=== PATIENT | female | born 1965 | race Caucasian/White ===

== ENCOUNTER 2017-05-14 05:29 | Outpatient (CLI) | payer OTHER | END 2017-05-14 05:30 | disposition home or self-care (01) | LOC: RT 05:29 | PROVIDERS: ATTEND Nurse Practitioner Family | DX: R00.0 Tachycardia, unspecified (principal) | CPT/HCPCS: 93005 ==

== ENCOUNTER 2017-09-13 18:11 | Outpatient (CLI) | payer SELFPAY | END 2017-09-13 18:12 | disposition home or self-care (01) | LOC: LAB 18:11 | DX: Z53.9 Procedure and treatment not carried out, unspecified reason (principal) ==

== ENCOUNTER 2017-12-17 10:13 | Emergency (ER) | payer OTHER ==
[2017-12-17 10:50] LABS: BASOPHILS # (AUTO) 0.1 10^3/uL (0.0-0.1); BASOPHILS % (AUTO) 0.5 %; EOSINOPHILS # (AUTO) 0.2 10^3/uL (0.0-0.7); EOSINOPHILS % (AUTO) 1.5 %; HGB - HEMOGLOBIN 14.1 g/dL (12.0-16.0); LYMPHOCYTES # (AUTO) 2.3 10^3/uL (1.5-3.5); LYMPHOCYTES % (AUTO) 21.1 %; MEAN CORPUSCULAR HEMOGLOBIN 27.1 pg (27.0-31.0); MEAN CORPUSCULAR HGB CONC 32.8 g/dL (32.0-36.0); MEAN CORPUSCULAR VOLUME 82.7 fL (81.0-99.0); MEAN PLATELET VOLUME 7.9 fL (7.9-10.8); MONOCYTES % (AUTO) 8.9 %; NEUTROPHILS # (AUTO) 7.6 10^3/uL (1.5-6.6); PLT - PLATELET COUNT 298 10^3/uL (130-450); RED BLOOD COUNT 5.18 10^6/uL (4.20-5.40); RED CELL DISTRIBUTION WIDTH 14.6 % (12.0-15.0); WHITE BLOOD COUNT 11.1 x10^3/uL (4.8-10.8)
[2017-12-17 11:04] LABS: ALBUMIN 3.8 g/dL (3.2-5.5); ALBUMIN/GLOBULIN RATIO 1.1 (1.0-2.2); BILIRUBIN,TOTAL 0.7 mg/dL (0.2-1.0); CALCIUM 8.8 mg/dL (8.5-10.3); CREATININE 0.7 mg/dL (0.4-1.0); TOTAL PROTEIN 7.3 g/dL (6.7-8.2)
--- NOTE | 2017-12-17 11:45 | XRAY Report ---
Procedure Date: 12/17/2017 Accession Number: [id number] / [id number] Procedure: XR - Chest 2 View X-Ray CPT Code: 52062 FULL RESULT: EXAM: CHEST RADIOGRAPHY EXAM DATE: 12/17/2017 11:15 AM. CLINICAL HISTORY: Palpitations. COMPARISON: 10/17/16. TECHNIQUE: 2 views. FINDINGS: Lungs/Pleura: No focal opacities evident. No pleural effusion. No pneumothorax. Normal volumes. Mediastinum: Heart and mediastinal contours are unremarkable. Other: None. IMPRESSION: Normal 2-view chest radiography. RADIA
[2017-12-17] MEDS ORDERED: ENOXAPARIN 100 MG/ML SYRINGE SUBQ STA (11:53)
--- NOTE | 2017-12-17 11:55 | ED Physician Documentation ---
PD HPI DYSPNEA - Stated complaint Stated Complaint: HEART PALPITATION - Chief complaint Chief Complaint: Cardiac - History obtained from History obtained from: Patient - History of Present Illness Timing - onset: Today Timing - onset during: Light activity Timing - duration: Minutes Timing - details: Abrupt onset, Still present Inciting event(s): Other (recent trip to [facility]) Improved by: Rest, Sitting up Worsened by: Exertion, Laying flat Associated symptoms: Wheezing, Chest pain / discomfort, Palpitations. No: Fever , Cough, Hemoptysis Similar symptoms before: Diagnosis (PE) Recently seen: Not recently seen - Additional information Additional information: 52-year-old female with a prior history of pulmonary embolism and congestive heart failure has had a recent trip to [facility] and she returned in October. She was at work today and she began to feel dyspneic dizzy and had palpitations. She is concerned about the possibility of a recurrent pulmonary embolism. She states that she was well yesterday but did not feel well in the evening. Review of Systems Constitutional: denies: Fever Eyes: denies: Decreased vision Ears: denies: Ear pain Nose: denies: Congestion Throat: denies: Sore throat Cardiac: reports: Chest pain / pressure, Palpitations. denies: Pedal edema, Calf pain Respiratory: reports: Dyspnea. denies: Cough, Wheezing GI: denies: Abdominal Pain, Nausea, Vomiting : denies: Dysuria, Frequency Skin: denies: Rash Musculoskeletal: denies: Neck pain, Back pain Neurologic: denies: Generalized weakness, Focal weakness, Numbness PD PAST MEDICAL HISTORY - Past Medical History Past Medical History: Yes Cardiovascular: Congestive heart failure, Pulmonary embolism Respiratory: Shortness of breath GI: GERD, GI bleed HEALTH/SAFETY JOB TITLES: None : None Psych: None Musculoskeletal: None - Past Surgical History Past Surgical History: Yes General: Cholecystectomy, Gastric surgery /HEALTH/SAFETY JOB TITLES: section, Tubal ligation, Hysterectomy - Present Medications Home Medications: Ambulatory Orders Medication Instructions Recorded Confirmed Aspirin 325 mg PO DAILY 02/13/13 02/26/14 Levothyroxine [Synthroid] 300 mcg PO QDAC 02/13/13 02/26/14 Cyclobenzaprine [Flexeril] 10 mg PO BID 02/26/14 02/26/14 Ibuprofen 800 mg PO DAILY 02/26/14 02/26/14 Metoprolol Tartrate 25 mg PO BID 02/26/14 02/26/14 Rivaroxaban [Xarelto] 15 mg PO BID #40 tablet 12/17/17 - Allergies Allergies/Adverse Reactions: Allergies Allergy/AdvReac Type Severity Reaction Status Date / Time No Known Drug Allergies Allergy Verified 02/13/13 00:22 - Social History Does the pt smoke?: No Smoking Status: Never smoker Does the pt drink ETOH?: No Does the pt have substance abuse?: No - Immunizations Immunizations are current?: Yes - POLST Patient has POLST: No PD ED PE NORMAL - Vitals Vital signs reviewed: Yes (hypertensive ) - General General: Alert and oriented X 3, Well developed/nourished, Other (mild tachypnea at rest) - HEENT HEENT: Atraumatic, PERRL, EOMI - Neck Neck: Supple, no meningeal sign, No bony TTP - Cardiac Cardiac: No murmur, Other (tachy to 100) - Respiratory Respiratory: Other (tachypneic with adequate air movment and no wheezes. 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, No motor deficit, No sensory deficit, Normal speech Eye Opening: Spontaneous Motor: Obeys Commands Verbal: Oriented GCS Score: 15 - Psych Psych: Normal mood, Normal affect Results - Vitals Vitals: Vital Signs - 24 hr 12/17/17 12/17/17 12/17/17 10:22 12:33 13:14 Temperature 36.2 C L 36.7 C Heart Rate 97 87 94 Respiratory 18 18 16 Rate Blood Pressure 135/85 H 111/81 H 104/75 O2 Saturation 100 100 100 Oxygen O2 Source Room air - EKG (time done) 1021 Rate: Rate (enter#) (93) Rhythm: NSR, LAE Computer interpretation: Agree with computer - Labs Labs: Laboratory Tests 12/17/17 12/17/17 12/17/17 10:48 10:48 10:48 WBC 11.1 H RBC 5.18 Hgb 14.1 Hct 42.9 MCV 82.7 MCH 27.1 MCHC 32.8 RDW 14.6 Plt Count 298 MPV 7.9 Neut # (Auto) 7.6 H Lymph # (Auto) 2.3 Daggett # (Auto) 1.0 Eos # (Auto) 0.2 Baso # (Auto) 0.1 Absolute Nucleated RBC 0.00 Nucleated RBC % 0.0 Sodium 135 Potassium 3.8 Chloride 104 Carbon Dioxide 22 Anion Gap 9.0 BUN 15 Creatinine 0.7 Estimated GFR (MDRD) 89 Glucose 104 H Calcium 8.8 Total Bilirubin 0.7 AST 22 ALT 22 Alkaline Phosphatase 53 Troponin I < 0.04 Total Protein 7.3 Albumin 3.8 Globulin 3.5 Albumin/Globulin Ratio 1.1 Lipase 31 Procedures - IVC sono (time) 1150 Bedside IVC sono: IVC measures (cm) (1.84), Euvolemia PD MEDICAL DECISION MAKING - ED course Complexity details: reviewed old records, reviewed results, re-evaluated patient , considered differential, d/w patient ED course: 52-year-old female with a history of pulmonary embolism and congestive heart failure has acute dyspnea and clear lungs on exam a pulmonary angiogram is ordered. She is administered Lovenox 100 mg. The angio gram shows PE in the left lung and she is prescribed xarolto and we get a phone call from the pharmacist that this is not a covered medication and she is switched to Eliquis. - Sepsis Event Vital Signs: Vital Signs - 24 hr 12/17/17 12/17/17 12/17/17 10:22 12:33 13:14 Temperature 36.2 C L 36.7 C Heart Rate 97 87 94 Respiratory 18 18 16 Rate Blood Pressure 135/85 H 111/81 H 104/75 O2 Saturation 100 100 100 Oxygen O2 Source Room air Departure - Departure Disposition: 01 Home, Self Care Clinical Impression: Pulmonary embolism Qualifiers: Pulmonary embolism type: other Chronicity: acute Acute cor pulmonale presence: without acute cor pulmonale Qualified Code(s): I26.99 - Other pulmonary embolism without acute cor pulmonale Condition: Stable Instructions: Embolism Pulmonary Follow-Up: Cresencio Kessler ARNP [Primary Care Provider] - Prescriptions: Rivaroxaban [Xarelto] 15 mg PO BID #40 tablet Comments: Today looks like there is a pulmonary embolism in the left lung. Take your medication twice per day for the next 3 weeks and following that you will need to switch the medication to a higher dose and take it once per day. You will need to follow-up with your primary care doctor and should not miss doses of this medicine. Forms: Activity restrictions Discharge Date/Time: 12/17/17 13:35
[2017-12-17] MEDS ORDERED: IOPAMIDOL-300 100 ML VIAL ONE (12:18)
[2017-12-17] MEDS ORDERED: IOPAMIDOL-300 100 ML VIAL IVP ONE (12:38)
--- NOTE | 2017-12-17 12:57 | CT Report ---
Procedure Date: 12/17/2017 Accession Number: [id number] / [id number] Procedure: CT - Chest Angio (PE) CPT Code: FULL RESULT: EXAM: CT ANGIOGRAM CHEST EXAM DATE: 12/17/2017 12:36 PM. CLINICAL HISTORY: Dyspnea, chest pain palpitations. COMPARISON: 12/17/2017, 02/13/2013. TECHNIQUE: Routine helical imaging was performed through the chest in the pulmonary arterial phase. IV Contrast: ISOVUE 300 80mL. Reconstructions: Coronal 3-D MIP reconstructions.Sagittal and coronal. In accordance with CT protocol optimization, one or more of the following dose reduction techniques were utilized for this exam: automated exposure control, adjustment of mA and/or KV based on patient size, or use of iterative reconstructive technique. FINDINGS: Pulmonary Arteries: Diagnostic quality: Adequate through the segmental arteries. There are small filling defects in a left lower lobe basilar segmental artery (image 67 through 70 series 4). No additional emboli identified. RV/LV is within normal limits. There is no interventricular septal bowing. There is no reflux of contrast material in the IVC. Lungs/Pleura: No consolidation, nodules, or edema. No or pleural effusion or pneumothorax. Mediastinum: Normal heart size. No significant pericardial effusion. Increased right hilar soft tissue is unchanged since 2012. Mild narrowing of right lower lobe basilar segmental arteries is unchanged. No new lymphadenopathy. Moderate hiatal hernia. Patulous gas-filled distal esophagus. Thoracic Aorta: Unremarkable. Upper Abdomen: Surgical changes of the gastroesophageal junction. Other: None. IMPRESSION: 1. Small left lower lobe segmental pulmonary embolus. No evidence of right heart strain. 2. Surgical changes at the gastroesophageal junction. Moderate hiatal hernia. RADIA The above findings were discussed with Saul Marie by Dr. Nic Rosado at 12:56 hrs on 12/17/17.
[2017-12-17 13:15] VITALS: BP 104/75
== END 2017-12-17 13:35 | disposition home or self-care (01) ==
LOC: ED 10:13
DX: I26.99 Other pulmonary embolism without acute cor pulmonale (principal); I50.9 Heart failure, unspecified; Z79.01 Long term (current) use of anticoagulants
CPT/HCPCS: 36415; 71046; 71275; 80053; 83690; 84484; 85025; 93005; 96372; 99283; 99284; J1650; Q9967

== ENCOUNTER 2018-03-07 16:15 | Emergency (ER) | payer OTHER ==
--- NOTE | 2018-03-07 18:03 | ED Physician Documentation ---
PD HPI LOWER EXT INJURY - Stated complaint Stated Complaint: LF FOOT INJ - Chief complaint Chief Complaint: Ext Problem - History obtained from History obtained from: Patient, Family - History of Present Illness PD HPI LOW EXT INJURY LOCATION: Left, Toe (great) Type of injury: Blunt / blow Where injury occurred: Home Timing - onset: Today Timing - duration: Hours Timing - details: Abrupt onset, Still present Improved by: Rest, Immobilization Worsened by: Moving, Palpating Associated symptoms: Swelling. No: Weakness Contributing factors: Anticoagulated Similar symptoms before: Has not had sx before Recently seen: Not recently seen - Additional information Additional information: 52-year-old female kicked her 500 pound male pig when he was trying to get into the pig pen to get after the Sow and her piglets. She sustained an injury to the left great toe and it hurts especially over the distal 1st metatarsal. Review of Systems Constitutional: denies: Fever Respiratory: denies: Cough GI: denies: Vomiting : denies: Dysuria Skin: denies: Rash Musculoskeletal: reports: Extremity pain, Pain with weight bearing. 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 : None Psych: None Musculoskeletal: None - Past Surgical History Past Surgical History: Yes General: Cholecystectomy, Gastric surgery /BOAT JOINER HELPER: section, Tubal ligation, Hysterectomy - Present Medications Home Medications: Ambulatory Orders Medication Instructions Recorded Confirmed Levothyroxine [Synthroid] 275 mcg PO QDAC 02/13/13 03/07/18 Cyclobenzaprine [Flexeril] 10 mg PO BID 02/26/14 03/07/18 Ibuprofen 800 mg PO DAILY 02/26/14 03/07/18 Metoprolol Tartrate 25 mg PO BID 02/26/14 03/07/18 Apixaban [Eliquis] 5 mg BID 03/07/18 03/07/18 - Allergies Allergies/Adverse Reactions: Allergies Allergy/AdvReac Type Severity Reaction Status Date / Time No Known Drug Allergies Allergy Verified 03/07/18 17:17 - Living Situation Living Arrangement: reports: At home - Social History Does the pt smoke?: No Smoking Status: Never smoker Does the pt drink ETOH?: No Does the pt have substance abuse?: No - Immunizations Immunizations are current?: Yes - POLST Patient has POLST: No PD ED PE NORMAL - Vitals Vital signs reviewed: Yes (tachy and hypertensive ) - General General: Alert and oriented X 3, No acute distress, Well developed/nourished - HEENT HEENT: Atraumatic, PERRL, EOMI - Respiratory Respiratory: No respiratory distress - Derm Derm: Normal color, Warm and dry, No rash - Extremities Extremities: Other (There is a bunion deformity on the left foot. There is tenderness over this area over the distal left 1st metatarsal. 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 No fracture identified. 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 She does not have evidence of a fracture on her x-ray and she is placed onto crutches and given a note for work for 3 days. - Sepsis Event Vital Signs: Vital Signs - 24 hr 03/07/18 03/07/18 16:35 18:17 Temperature 36.9 C 37.3 C Heart Rate 111 H 102 H Respiratory 18 18 Rate Blood Pressure 118/101 H 124/81 H O2 Saturation 98 100 Oxygen O2 Source Room air Departure - Departure Disposition: 01 Home, Self Care Clinical Impression: Contusion of left foot including toes Qualifiers: Encounter type: initial encounter Qualified Code(s): S90.32XA - Contusion of left foot, initial encounter Condition: Stable Instructions: ED Contusion Foot Follow-Up: Cresencio Kessler ARNP [Primary Care Provider] - Forms: Activity restrictions
[2018-03-07 18:17] VITALS: BP 124/81
--- NOTE | 2018-03-07 18:24 | XRAY Report ---
Reason: big toe contusion Procedure Date: 03/07/2018 Accession Number: [id number] / [id number] Procedure: XR - Foot 3 View LT CPT Code: FULL RESULT: EXAM: LEFT FOOT RADIOGRAPHY EXAM DATE: 03/07/2018 05:53 PM. CLINICAL HISTORY: Big toe contusion. Kicking injury. COMPARISON: None. TECHNIQUE: 3 views. FINDINGS: Bones: No traumatic or destructive bone abnormalities. Calcaneal enthesophyte noted. Joints: Degenerative spurring at the first MTP joint. No subluxations. Soft Tissues: Unremarkable. IMPRESSION: 1. No fracture identified. 2. 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 RADIA
== END 2018-03-07 18:33 | disposition home or self-care (01) ==
LOC: ED 16:15
DX: S90.112A Contusion of left great toe without damage to nail, initial encounter (principal); W22.8XXA Striking against or struck by other objects, initial encounter; Y92.009 Unspecified place in unspecified non-institutional (private) residence as the place of occurrence of the external cause; I26.99 Other pulmonary embolism without acute cor pulmonale; Z79.01 Long term (current) use of anticoagulants
CPT/HCPCS: 99282; 99283

== ENCOUNTER 2018-04-23 10:57 | Outpatient (CLI) | payer OTHER ==
[2018-04-23] MEDS ORDERED: IOPAMIDOL-300 100 ML VIAL ONE (11:07)
[2018-04-23] MEDS ORDERED: IOPAMIDOL-300 50 ML VIAL ONE (11:07)
[2018-04-23 11:20] LABS: BASOPHILS % (AUTO) 0.5 %; EOSINOPHILS # (AUTO) 0.1 10^3/uL (0.0-0.7); EOSINOPHILS % (AUTO) 1.7 %; HGB - HEMOGLOBIN 13.9 g/dL (12.0-16.0); LYMPHOCYTES # (AUTO) 2.3 10^3/uL (1.5-3.5); LYMPHOCYTES % (AUTO) 26.3 %; MEAN CORPUSCULAR HEMOGLOBIN 27.7 pg (27.0-31.0); MEAN CORPUSCULAR HGB CONC 34.1 g/dL (32.0-36.0); MEAN CORPUSCULAR VOLUME 81.3 fL (81.0-99.0); MEAN PLATELET VOLUME 7.7 fL (7.9-10.8); MONOCYTES # (AUTO) 0.9 10^3/uL (0.0-1.0); MONOCYTES % (AUTO) 10.4 %; NEUTROPHILS # (AUTO) 5.2 10^3/uL (1.5-6.6); NEUTROPHILS % (AUTO) 61.1 %; PLT - PLATELET COUNT 273 10^3/uL (130-450); RED BLOOD COUNT 5.02 10^6/uL (4.20-5.40); RED CELL DISTRIBUTION WIDTH 14.4 % (12.0-15.0); WHITE BLOOD COUNT 8.6 x10^3/uL (4.8-10.8)
[2018-04-23 11:34] LABS: CALCIUM 9.4 mg/dL (8.5-10.3); CREATININE 0.7 mg/dL (0.4-1.0)
[2018-04-23] MEDS ORDERED: IOPAMIDOL-300 50 ML VIAL PO ONE (12:25)
[2018-04-23] MEDS ORDERED: IOPAMIDOL-300 100 ML VIAL IVP ONE (12:25)
--- NOTE | 2018-04-23 13:38 | CT Report ---
Reason: DIARRHEA,ABDOMINAL PAIN UNSPECIFIED Procedure Date: 04/23/2018 Accession Number: [id number] / [id number] Procedure: CT - Abdomen/Pelvis W/ CPT Code: FULL RESULT: EXAM: CT ABDOMEN AND PELVIS EXAM DATE: 04/23/2018 12:23 PM. CLINICAL HISTORY: Diarrhea, abdominal PAIN UNSPECIFIED. COMPARISONS: None. TECHNIQUE: Routine helical CT imaging was performed through the abdomen and pelvis. IV contrast: ISOVUE 300 100mL. Enteric contrast: Yes. Reconstructions: Coronal and sagittal. In accordance with CT protocol optimization, one or more of the following dose reduction techniques were utilized for this exam: automated exposure control, adjustment of mA and/or KV based on patient size, or use of iterative reconstructive technique. FINDINGS: Lung Bases: Unremarkable. Hiatal hernia Liver: Normal. No masses. Gallbladder/Bile Ducts: Status post cholecystectomy Spleen: Normal. Pancreas: Normal. Adrenal Glands: Normal. Kidneys: Normal. No masses or hydronephrosis. Peritoneal Cavity/Bowel: Prior gastric surgery.. No free fluid, free air or pathologic adenopathy. Scattered normal size lymph nodes are present. No masses or acute inflammatory process. The appendix is not seen. Pelvic Organs: The bladder is within normal limits. The uterus is not seen. What is believed to be a residual left ovary with a small cyst is present series 3 image 64. Vasculature: No aneurysms or other significant abnormality. Bones: Thoracolumbar junction dextroscoliosis. Grade 1 anterior listhesis L4 on L5. Other: None. IMPRESSION: 1. Prior gastric surgery with hiatal hernia. 2. Status post cholecystectomy and hysterectomy. 3. Degenerative changes in the spine. 4. No acute findings in the abdomen or pelvis. RAD[facility] The call report notification system was initiated by Dr. Darlin Clark at 13:28 hrs on 04/23/18. The above findings were discussed with Dr. Mathis by Dr. Darlin Clark at 13:35 hrs on 04/23/18.
== END 2018-04-23 10:58 | disposition home or self-care (01) ==
LOC: DI 10:57
PROVIDERS: ATTEND Family Medicine
DX: K44.9 Diaphragmatic hernia without obstruction or gangrene (principal); R10.9 Unspecified abdominal pain; R19.7 Diarrhea, unspecified; Z90.49 Acquired absence of other specified parts of digestive tract; Z90.710 Acquired absence of both cervix and uterus
CPT/HCPCS: 36415; 74177; 80048; 85025; Q9967

== ENCOUNTER 2019-02-11 12:09 | Emergency (ER) | payer BC ==
--- NOTE | 2019-02-11 12:51 | ED Physician Documentation ---
History of Present Illness - Stated complaint Stated Complaint: CHEST PX - Chief complaint Chief Complaint: Cardiac - History obtained from History obtained from: Patient - History of Present Illness Timing: Today Pain level max: 4 Pain level now: 1 - Additonal information Additional information: 53-year-old female presents the emergency department stating that she had chest pain today, started at approximately 1145. Lasted until approximately 1210. Center of the chest, sharp. She has had 3 pulmonary emboli in the past. The first 2 were attributed to oral contraceptive pills. She has been on Eliquis for the last year for the most recent pulmonary emboli. She states that she has been on a tapering dose of this and is currently on 2-1/2 mg of Eliquis daily. No history of acute coronary syndrome. Nothing made the pain better. Nothing made it worse. No difficulty breathing. No nausea or vomiting. Review of Systems Ten Systems: 10 systems reviewed and negative Constitutional: denies: Fever, Chills Throat: denies: Sore throat Respiratory: denies: Cough GI: denies: Vomiting, Diarrhea Skin: denies: Rash Musculoskeletal: denies: Neck pain, Back pain Neurologic: denies: Focal weakness, Numbness, Headache PD PAST MEDICAL HISTORY - Past Medical History Cardiovascular: Congestive heart failure, Pulmonary embolism Respiratory: Shortness of breath GI: GERD, GI bleed TABBER: None : None Psych: None Musculoskeletal: None - Past Surgical History Past Surgical History: Yes General: Cholecystectomy, Gastric surgery /TABBER: section, Tubal ligation, Hysterectomy - Present Medications Home Medications: Ambulatory Orders Medication Instructions Recorded Confirmed Levothyroxine [Synthroid] 275 mcg PO QDAC 02/13/13 03/07/18 Cyclobenzaprine [Flexeril] 10 mg PO BID 02/26/14 03/07/18 Ibuprofen 800 mg PO DAILY 02/26/14 03/07/18 Metoprolol Tartrate 25 mg PO BID 02/26/14 03/07/18 Apixaban [Eliquis] 5 mg BID 03/07/18 03/07/18 - Allergies Allergies/Adverse Reactions: Allergies Allergy/AdvReac Type Severity Reaction Status Date / Time No Known Drug Allergies Allergy Verified 02/11/19 12:14 - Social History Does the pt smoke?: No Smoking Status: Never smoker Does the pt drink ETOH?: No Does the pt have substance abuse?: No - Immunizations Immunizations are current?: Yes - POLST Patient has POLST: No PD ED PE NORMAL - Vitals Vital signs reviewed: Yes - General General: Alert and oriented X 3, No acute distress, Well developed/nourished - HEENT HEENT: PERRL, Moist mucous membranes - Neck Neck: Supple, no meningeal sign - Cardiac Cardiac: RRR, Strong equal pulses - Respiratory Respiratory: No respiratory distress, Clear bilaterally - Abdomen Abdomen: Soft, Non tender, Non distended - Derm Derm: Warm and dry - Extremities Extremities: No edema, No calf tenderness / cord - Neuro Neuro: Alert and oriented X 3 - Psych Psych: Normal mood, Normal affect Results - Vitals Vitals: Vital Signs - 24 hr 02/11/19 02/11/19 02/11/19 12:14 12:47 14:36 Temperature 37.1 C Heart Rate 76 64 67 Respiratory 18 22 13 Rate Blood Pressure 119/75 107/61 O2 Saturation 100 97 97 Oxygen O2 Source Room air - EKG (time done) 1223 Rate: Rate (enter#) (66) Rhythm: NSR Gilbert: Normal Intervals: Normal GA QRS: Normal Ischemia: Normal ST segments - Labs Labs: Laboratory Tests 02/11/19 02/11/19 02/11/19 12:40 12:40 12:40 WBC 8.2 RBC 5.15 Hgb 14.2 Hct 43.4 MCV 84.3 MCH 27.6 MCHC 32.7 RDW 13.3 Plt Count 269 MPV 10.3 Neut # (Auto) 4.8 Lymph # (Auto) 2.4 Briscoe # (Auto) 0.8 Eos # (Auto) 0.2 Baso # (Auto) 0.1 Absolute Nucleated RBC 0.00 Nucleated RBC % 0.0 Sodium 139 Potassium 3.9 Chloride 105 Carbon Dioxide 23 Anion Gap 11.0 BUN 18 Creatinine 0.8 Estimated GFR (MDRD) 76 L Glucose 102 H Calcium 9.1 Total Bilirubin 0.6 AST 20 ALT 24 Alkaline Phosphatase 48 Troponin I High Sens < 2.3 L Total Protein 7.0 Albumin 4.1 Globulin 2.9 Albumin/Globulin Ratio 1.4 Lipase 38 02/11/19 14:25 WBC RBC Hgb Hct MCV MCH MCHC RDW Plt Count MPV Neut # (Auto) Lymph # (Auto) Briscoe # (Auto) Eos # (Auto) Baso # (Auto) Absolute Nucleated RBC Nucleated RBC % Sodium Potassium Chloride Carbon Dioxide Anion Gap BUN Creatinine Estimated GFR (MDRD) Glucose Calcium Total Bilirubin AST ALT Alkaline Phosphatase Troponin I High Sens < 2.3 L Total Protein Albumin Globulin Albumin/Globulin Ratio Lipase - Rads (name of study) Chest x-ray Radiology: Prelim report reviewed, EMP read contemporaneously, See rad report (No acute intrathoracic plain film abnormality. ) CT pulmonary angiogram Radiology: Prelim report reviewed, EMP read contemporaneously, See rad report (Negative for acute pulmonary embolism. 2. Findings of old, chronic pulmonary embolism in the right lower lobe segmental arteries. 3. Small hiatal hernia unchanged. 4. No acute pulmonary disease. ) PD MEDICAL DECISION MAKING - ED course Complexity details: reviewed results, re-evaluated patient, considered differential (No ST elevation CT, no aortic dissection, no PE, no tension pneumothorax, no aortic aneurysm), d/w patient ED course: 53-year-old female with atypical chest pain. She is concerned about another pulmonary embolism. CT scan is negative. EKG does not show any acute abnormalities. Negative high-sensitivity troponin x2. We will follow-up with her doctor for further care and cardiac stress test. Patient counseled regarding signs and symptoms for which I believe and urgent re-evaluation would be necessary. Patient with good understanding of and agreement to plan and is comfortable going home at this time This document was made in part using voice recognition software. While efforts are made to proofread this document, sound alike and grammatical errors may occur. Asymptomatic in the emergency department Departure - Departure Disposition: 01 Home, Self Care Clinical Impression: Chest pain Qualifiers: Chest pain type: unspecified Qualified Code(s): R07.9 - Chest pain, unspecified Condition: Good Instructions: ED Chest Pain Atypical Unkn Cause Follow-Up: Cresencio Kessler ARNP [Primary Care Provider] - Within 1 week Comments: The cause of your symptoms is unclear. Return if you worsen. Follow-up with your doctor for further care. Continue your current medications. Discharge Date/Time: 02/11/19 15:47
[2019-02-11 12:56] LABS: BASOPHILS # (AUTO) 0.1 10^3/uL (0.0-0.1); BASOPHILS % (AUTO) 0.7 %; EOSINOPHILS # (AUTO) 0.2 10^3/uL (0.0-0.7); EOSINOPHILS % (AUTO) 1.8 %; HGB - HEMOGLOBIN 14.2 g/dL (12.0-16.0); LYMPHOCYTES # (AUTO) 2.4 10^3/uL (1.5-3.5); LYMPHOCYTES % (AUTO) 28.6 %; MEAN CORPUSCULAR HEMOGLOBIN 27.6 pg (27.0-31.0); MEAN CORPUSCULAR HGB CONC 32.7 g/dL (32.0-36.0); MEAN CORPUSCULAR VOLUME 84.3 fL (81.0-99.0); MEAN PLATELET VOLUME 10.3 fL (7.9-10.8); MONOCYTES # (AUTO) 0.8 10^3/uL (0.0-1.0); MONOCYTES % (AUTO) 10.2 %; NEUTROPHILS # (AUTO) 4.8 10^3/uL (1.5-6.6); NEUTROPHILS % (AUTO) 58.1 %; PLT - PLATELET COUNT 269 10^3/uL (130-450); RED BLOOD COUNT 5.15 10^6/uL (4.20-5.40); RED CELL DISTRIBUTION WIDTH 13.3 % (12.0-15.0); WHITE BLOOD COUNT 8.2 x10^3/uL (4.8-10.8)
[2019-02-11] MEDS ORDERED: IOVERSOL 320 100 ML VIAL IVP ONE ×2 (13:02→13:56)
--- NOTE | 2019-02-11 13:03 | XRAY Report ---
Reason: Chest Pain Procedure Date: 02/11/2019 Accession Number: [id number] / [id number] Procedure: XR - Chest 1 View X-Ray CPT Code: 40652 FULL RESULT: EXAM: CHEST RADIOGRAPHY EXAM DATE: 02/11/2019 12:36 PM. CLINICAL HISTORY: Chest Pain. COMPARISON: CHEST 2 VIEW 12/17/2017 11:08 AM. TECHNIQUE: 1 view. FINDINGS: Lungs/Pleura: No focal opacities evident. No pleural effusion. No pneumothorax. Mediastinum: Within exam limitations, the cardiomediastinal contour is normal. Other: There is a small hiatal hernia. IMPRESSION: No acute intrathoracic plain film abnormality. RADIA
[2019-02-11 13:08] LABS: ALBUMIN 4.1 g/dL (3.2-5.5); ALBUMIN/GLOBULIN RATIO 1.4 (1.0-2.2); BILIRUBIN,TOTAL 0.6 mg/dL (0.2-1.0); CALCIUM 9.1 mg/dL (8.5-10.3); CREATININE 0.8 mg/dL (0.4-1.0)
--- NOTE | 2019-02-11 13:58 | CT Report ---
Reason: chest pain, h/o PE x 3 in the past. Procedure Date: 02/11/2019 Accession Number: [id number] / [id number] Procedure: CT - ANGIO CHEST W/WO CPT Code: FULL RESULT: EXAM: CT ANGIOGRAM CHEST EXAM DATE: 02/11/2019 01:32 PM. CLINICAL HISTORY: Chest pain, h/o PE x 3 in the past. COMPARISON: CHEST ANGIO 12/17/2017 12:27 PM. TECHNIQUE: Routine helical imaging was performed through the chest in the pulmonary arterial phase. IV Contrast: OPTI 320 80ML. Reconstructions: Coronal 3-D MIP reconstructions.Sagittal and coronal. In accordance with CT protocol optimization, one or more of the following dose reduction techniques were utilized for this exam: automated exposure control, adjustment of mA and/or KV based on patient size, or use of iterative reconstructive technique. FINDINGS: Pulmonary Arteries: Diagnostic quality: Adequate through the segmental arteries. The right lower lobe segmental pulmonary arteries are small in size and demonstrate hypoenhancement similar to previous examination. Negative for acute pulmonary embolism. Main pulmonary artery size is normal. Lungs/Pleura: No consolidative process or mass. Lung volumes are normal. Trachea and central airways are normal in caliber. Mediastinum: Heart size is normal. There is no pericardial effusion. No mediastinal or hilar lymphadenopathy. There is a small sliding hiatal hernia. Thoracic Aorta: The aorta is not yet optimally enhanced with contrast. No aortic aneurysm. Upper Abdomen: There are findings of previous gastric surgery. Other: None. IMPRESSION: 1. Negative for acute pulmonary embolism. 2. Findings of old, chronic pulmonary embolism in the right lower lobe segmental arteries. 3. Small hiatal hernia unchanged. 4. No acute pulmonary disease. RADIA
[2019-02-11 14:40] VITALS: BP 107/61
== END 2019-02-11 15:47 | disposition home or self-care (01) ==
LOC: ED 12:09
DX: R07.9 Chest pain, unspecified (principal); Z86.718 Personal history of other venous thrombosis and embolism; Z79.01 Long term (current) use of anticoagulants
CPT/HCPCS: 36415; 71045; 71275; 80053; 83690; 84484; 85025; 99284; Q9967

== ENCOUNTER 2019-06-07 08:18 | Outpatient (CLI) | payer BC ==
[2019-06-07 09:05] LABS: BASOPHILS # (AUTO) 0.1 10^3/uL (0.0-0.1); BASOPHILS % (AUTO) 0.9 %; EOSINOPHILS # (AUTO) 0.1 10^3/uL (0.0-0.7); EOSINOPHILS % (AUTO) 1.7 %; HGB - HEMOGLOBIN 14.1 g/dL (12.0-16.0); LYMPHOCYTES # (AUTO) 2.4 10^3/uL (1.5-3.5); LYMPHOCYTES % (AUTO) 29.1 %; MEAN CORPUSCULAR HEMOGLOBIN 26.7 pg (27.0-31.0); MEAN CORPUSCULAR HGB CONC 31.8 g/dL (32.0-36.0); MEAN CORPUSCULAR VOLUME 83.7 fL (81.0-99.0); MEAN PLATELET VOLUME 10.2 fL (7.9-10.8); MONOCYTES # (AUTO) 0.9 10^3/uL (0.0-1.0); MONOCYTES % (AUTO) 11.4 %; NEUTROPHILS # (AUTO) 4.6 10^3/uL (1.5-6.6); NEUTROPHILS % (AUTO) 56.4 %; PLT - PLATELET COUNT 279 10^3/uL (130-450); RED BLOOD COUNT 5.29 10^6/uL (4.20-5.40); RED CELL DISTRIBUTION WIDTH 14.3 % (12.0-15.0); WHITE BLOOD COUNT 8.1 x10^3/uL (4.8-10.8)
[2019-06-07 09:13] LABS: HB2 TOTAL 14.5 g/dL; HEMOGLOBIN A1C 0.6 g/dL; HEMOGLOBIN A1C % 5.9 % (4.6-6.2)
[2019-06-07 09:15] LABS: ALBUMIN/GLOBULIN RATIO 1.3 (1.0-2.2); ALKALINE PHOSPHATASE 52 IU/L (42-121); ALT ALANINE AMINOTRANSFERASE 21 IU/L (10-60); AST ASPARTATE AMINOTRANSFERASE 19 IU/L (10-42); BILIRUBIN,TOTAL 0.7 mg/dL (0.2-1.0); BUN - BLOOD UREA NITROGEN 14 mg/dL (6-20); CALCIUM 9.4 mg/dL (8.5-10.3); CARBON DIOXIDE - CO2 26 mmol/L (21-32); CHLORIDE 104 mmol/L (101-111); CHOL/HDL RATIO 4.4 (<4.4); CHOLESTEROL 200 mg/dL; CREATININE 0.6 mg/dL (0.4-1.0); GFR - MDRD 105 (>89); GLUCOSE 103 mg/dL (70-100); HDL CHOLESTEROL 45 mg/dL; LDL CHOLESTEROL,CALCULATED 121 mg/dL; LDL/HDL RATIO 2.7 (<4.4); SODIUM 138 mmol/L (135-145); VLDL CHOLESTEROL 34 mg/dL
[2019-06-07 09:23] LABS: T4 (THYROXINE) 8.99 ug/dL (6.09-12.23)
[2019-06-07 09:26] LABS: THYROID STIMULATING HORMONE < 0.08 uIU/mL (0.34-5.60)
[2019-06-07 09:28] LABS: FREE T4 (FREE THYROXINE) 1.24 ng/dL (0.58-1.64)
[2019-06-07 09:32] LABS: FERRITIN 68.6 ng/mL (11.0-306.8)
== END 2019-06-07 08:19 | disposition home or self-care (01) ==
LOC: LAB 08:18
PROVIDERS: ATTEND Nurse Practitioner Family
DX: Z00.00 Encounter for general adult medical examination without abnormal findings (principal); E03.2 Hypothyroidism due to medicaments and other exogenous substances; E55.9 Vitamin D deficiency, unspecified; E78.5 Hyperlipidemia, unspecified
CPT/HCPCS: 36415; 80053; 80061; 81599; 82306; 82728; 83036; 83525; 83721; 84436; 84439; 84443; 84481; 85025; 86304

== ENCOUNTER 2019-09-02 07:37 | Outpatient (CLI) | payer BC ==
--- NOTE | 2019-09-02 08:41 | Mammography Report ---
Reason: ROUTINE MAMMO Procedure Date: 09/02/2019 Accession Number: [id number] / [id number] Procedure: [facility] - Screening Mammo w/Arash CPT Code: Final Report FULL RESULT: EXAM: Screening Mammo w/Arash DATE: 09/02/2019 8:13 AM CLINICAL HISTORY: Screening encounter. TECHNIQUE: (B) - Bilateral CC and MLO views were obtained. COMPARISON: 11/03/2013. PARENCHYMAL PATTERN: (A) - The breast(s) demonstrate(s) scattered fibroglandular densities. FINDINGS: There are no suspicious masses, calcifications, or areas of distortion. IMPRESSION: Negative examination. BI-RADS category 1. RECOMMENDATION: (ANNUAL) - Recommend routine annual screening mammography. BI-RADS CATEGORY: (1) - Negative. STANDARD QUALIFYING STATEMENTS: 1. This examination was not reviewed with the aid of Computer-Aided Detection (CAD). 2. A negative or benign imaging report should not preclude biopsy if clinically suspicious findings are present. 3. Dense breasts may obscure an underlying neoplasm. 4. This examination was reviewed with the aid of 3D breast imaging (tomosynthesis).
== END 2019-09-02 07:38 | disposition home or self-care (01) ==
LOC: DI 07:37
PROVIDERS: ATTEND Nurse Practitioner Family
DX: Z12.31 Encounter for screening mammogram for malignant neoplasm of breast (principal)
CPT/HCPCS: 77063; 77067

== ENCOUNTER 2020-05-21 10:44 | Outpatient (CLI) | payer BC ==
[2020-05-21 11:19] LABS: BASOPHILS # (AUTO) 0.1 10^3/uL (0.0-0.1); BASOPHILS % (AUTO) 0.9 %; EOSINOPHILS # (AUTO) 0.1 10^3/uL (0.0-0.7); EOSINOPHILS % (AUTO) 1.8 %; HGB - HEMOGLOBIN 13.5 g/dL (12.0-16.0); MEAN CORPUSCULAR HEMOGLOBIN 27.3 pg (27.0-31.0); MEAN CORPUSCULAR HGB CONC 32.3 g/dL (32.0-36.0); MEAN CORPUSCULAR VOLUME 84.4 fL (81.0-99.0); MEAN PLATELET VOLUME 9.7 fL (7.9-10.8); MONOCYTES # (AUTO) 0.7 10^3/uL (0.0-1.0); MONOCYTES % (AUTO) 10.7 %; NEUTROPHILS # (AUTO) 3.9 10^3/uL (1.5-6.6); NEUTROPHILS % (AUTO) 57.3 %; PLT - PLATELET COUNT 273 10^3/uL (130-450); RED BLOOD COUNT 4.95 10^6/uL (4.20-5.40); RED CELL DISTRIBUTION WIDTH 14.5 % (12.0-15.0); WHITE BLOOD COUNT 6.8 x10^3/uL (4.8-10.8)
[2020-05-21 11:32] LABS: HEMOGLOBIN A1c% 5.7 % (4.27-6.07)
[2020-05-21 11:40] LABS: ALBUMIN 4.1 g/dL (3.2-5.5); ALBUMIN/GLOBULIN RATIO 1.4 (1.0-2.2); ALKALINE PHOSPHATASE 62 IU/L (42-121); ALT ALANINE AMINOTRANSFERASE 22 IU/L (10-60); AST ASPARTATE AMINOTRANSFERASE 20 IU/L (10-42); BILIRUBIN,TOTAL 0.7 mg/dL (0.2-1.0); BUN - BLOOD UREA NITROGEN 20 mg/dL (6-20); CALCIUM 9.1 mg/dL (8.5-10.3); CARBON DIOXIDE - CO2 25 mmol/L (21-32); CHLORIDE 103 mmol/L (101-111); CHOL/HDL RATIO 4.5 (<4.4); CHOLESTEROL 196 mg/dL; CREATININE 0.6 mg/dL (0.4-1.0); GLUCOSE 104 mg/dL (70-100); HDL CHOLESTEROL 44 mg/dL; LDL CHOLESTEROL,CALCULATED 124 mg/dL; LDL/HDL RATIO 2.8 (<4.4); MAGNESIUM 2.4 mg/dL (1.7-2.8); SODIUM 140 mmol/L (135-145); TOTAL PROTEIN 7.1 g/dL (6.7-8.2); VLDL CHOLESTEROL 28 mg/dL
[2020-05-21 11:44] LABS: CRP - C-REACTIVE PROTEIN < 1.0 mg/dL (0-1.0)
[2020-05-21 11:50] LABS: T4 (THYROXINE) 10.64 ug/dL (6.09-12.23)
[2020-05-21 11:51] LABS: CA 125 12.7 U/mL (0.0-35.0)
[2020-05-21 11:52] LABS: THYROID STIMULATING HORMONE 0.45 uIU/mL (0.34-5.60)
[2020-05-21 11:54] LABS: FREE T3 3.83 pg/mL (2.5-3.9); FREE T4 (FREE THYROXINE) 1.19 ng/dL (0.58-1.64)
[2020-05-21 11:59] LABS: FERRITIN 61.8 ng/mL (11.0-306.8)
== END 2020-05-21 10:45 | disposition home or self-care (01) ==
LOC: LAB 10:44
PROVIDERS: ATTEND Nurse Practitioner Family
DX: Z00.01 Encounter for general adult medical examination with abnormal findings (principal); E03.2 Hypothyroidism due to medicaments and other exogenous substances; E55.9 Vitamin D deficiency, unspecified; E78.5 Hyperlipidemia, unspecified; M79.10 Myalgia, unspecified site; M54.5 Low back pain; K95.09 Other complications of gastric band procedure; R19.7 Diarrhea, unspecified; R11.0 Nausea; R00.0 Tachycardia, unspecified; I26.99 Other pulmonary embolism without acute cor pulmonale; Z86.711 Personal history of pulmonary embolism; E66.9 Obesity, unspecified
CPT/HCPCS: 36415; 80053; 80061; 82306; 82728; 83036; 83721; 83735; 84436; 84439; 84443; 84481; 85025; 85651; 86140; 86304; 86376

== ENCOUNTER 2021-03-21 09:29 | Outpatient (CLI) | payer BC ==
--- NOTE | 2021-03-21 12:10 | XRAY Report ---
PROCEDURE: Chest 2 View X-Ray INDICATIONS: ACID REFLUX TECHNIQUE: 2 view(s) of the chest. COMPARISON: 02/11/2019. FINDINGS: Surgical changes and devices: None. Lungs and pleura: No pleural effusions or pneumothorax. Lungs are clear. Mediastinum: Mediastinal contours are normal. Heart size is normal. Bones and chest wall: No suspicious bony abnormalities. Soft tissues appear unremarkable. IMPRESSION: Chest without acute cardiopulmonary abnormalities. No focal airspace disease. Reviewed by: Ruddy Buck MD on 03/21/2021 12:09 PM PDT Approved by: Ruddy uBck MD on 03/21/2021 12:09 PM PDT Station ID: [id number]
--- NOTE | 2021-03-21 12:35 | XRAY Report ---
PROCEDURE: Hip w/Pelvis 1V RT INDICATIONS: R HIP PX TECHNIQUE: AP pelvis with lateral view(s) of the right hip(s). COMPARISON: None. FINDINGS: Bones: Asymmetric moderate right hip joint osteoarthritic changes are seen. No acute fractures or di slocations. No evidence of avascular necrosis of femoral head. Pelvic ring appears intact. No suspi cious bony lesions. Soft tissues: The visualized bowel gas pattern is normal. No suspicious soft tissue calcifications. IMPRESSION: Asymmetric moderate right hip joint osteoarthritis. No hip fracture or dislocation. No ev idence of avascular necrosis. Reviewed by: Damian Nair MD on 03/21/2021 12:34 PM PDT Approved by: Damian Nair MD on 03/21/2021 12:34 PM PDT Station ID: [id number]
== END 2021-03-21 23:59 | disposition home or self-care (01) ==
LOC: DI.N 09:29
PROVIDERS: ATTEND Family Medicine
DX: K21.9 Gastro-esophageal reflux disease without esophagitis (principal); M16.11 Unilateral primary osteoarthritis, right hip